=== PATIENT | male | born 1985 | race Caucasian/White ===

== ENCOUNTER 2019-07-14 18:16 | Emergency (ER) | payer OTHER, SELFPAY ==
--- NOTE | ~2019-07-14 | CT_ITS ---
EXAMINATION: CT abdomen pelvis w con EXAM DATE: 07/14/2019 19:53 INDICATION: Right lower quadrant pain. TECHNIQUE: Spiral CT of the abdomen and pelvis was performed following intravenous injection of 100 m L Omnipaque 350. Axial, coronal and sagittal images were reviewed. The dose-length product (DLP) fo r this examination was 223.76 mGy-cm. The exposure was tailored according to patient size (auto mA e xposure control), and iterative reconstruction (ASIR) was used as additional dose reduction technique . Comparison is made to prior examination from 06/08/2012. FINDINGS: The liver, spleen, adrenal glands and pancreas are unremarkable. Gallbladder is unremarkab le. No biliary obstruction. Portal and splenic veins are patent. Kidneys enhance symmetrically. T here is no hydronephrosis. The prostate is unremarkable. The bladder is unremarkable. There is no retroperitoneal or pelvic lymphadenopathy. There is mild to moderate sigmoid colonic diverticulosis, equivocal mild inflammation adjacent to thi s, possible acute uncomplicated diverticulitis. Probable identification of a normal appendix. No albertina cecal inflammation. The stomach and small bowel are unremarkable. There is expected amount of colo lian stool. No free intraperitoneal gas. The heart is normal in size. There are no pericardial or pleural effusions. The lung bases are unremarkable. The bones are unremarkable. IMPRESSION: 1. Possible acute uncomplicated sigmoid colonic diverticulitis. 2. No other suspicious findings. Reviewed, dictated and finalized at location A.
[2019-07-14 18:42] VITALS: BP 145/70; PULSE 68; RESP 18; TEMP 36.9; O2SAT 100
[2019-07-14 19:09] LABS: Basophils Percent Auto 0.5 % (0.2-1.2); Eosinophils Absolute Auto 0.1 K/mm3 (0-0.3); Eosinophils Percent Auto 1.6 % (0-4.4); Hematocrit 45.5 % (42.0-52.0); Immature Granulocyte Absolute 0.02 K/mm3 (0.00-0.031); Immature Granulocyte Percent A 0.2 % (0-0.5); Lymphocytes Absolute Auto 2.28 K/mm3 (0.9-3.2); Lymphocytes Percent Auto 28.3 % (18.3-44.2); Mean Corpuscular Hemoglobin 29.4 pg (26-34); Mean Platelet Volume 9.7 fl (7.4-10.4); Monocytes Absolute Auto 0.7 K/mm3 (0.1-0.6); Monocytes Percent Auto 8.1 % (2.6-8.5); Neutrophils Percent Auto 61.3 % (45.5-73.1); Platelet Count Result 245 k/mm3 (150-375); Red Blood Count 5.11 M/mm3 (4.6-6.20); Red Cell Distribution Width 12.4 % (11.5-14.5); White Blood Count 8.1 K/mm3 (4.5-10.0)
--- NOTE | 2019-07-14 19:10 | ED.GENADULT ---
HPI - General Adult General Chief complaint: Abdominal Pain Stated complaint: RLQ pain Time Seen by Provider: 07/14/19 18:46 Source: patient History of Present Illness HPI narrative: Patient is a 33 y/o male complaining of right lower abdominal pain starting approximately 2 hours ago. He describes the pain as an ache and rates it as 4/10. He states the the pain radiates to right back sometimes. The pain has decreased spontaneously. He has not take any meds for this pain. Related Data Allergies Allergy/AdvReac Type Severity Reaction Status Date / Time sulfamethoxazole Allergy Intermediate Confusion Verified 07/14/19 18:47 trimethoprim Allergy Intermediate Confusion Verified 07/14/19 18:47 Review of Systems Constitutional: Constitutional: Denies chills, Denies fever(s), Denies headache(s) and Denies weakness Eyes: Eyes: Denies blurry vision ENT: Denies headache(s) and Denies neck pain Cardiovascular: Cardiovascular: Denies chest pain and Denies dyspnea Respiratory: Respiratory: Denies cough and Denies dyspnea Gastrointestinal: Gastrointestinal: Reports abdominal pain, Denies diarrhea, Denies nausea and Denies vomiting Genitourinary: Genitourinary: Denies hematuria and Denies dysuria Musculoskeletal: Musculoskeletal: Denies back pain and Denies neck pain Neurologic: Denies headache(s) and Denies weakness [facility] Social History Social History Gender identity (if verbalized by the patient): Female Exam Const: General: no acute distress and well developed Orientation/consciousness: oriented to person, oriented to place, oriented to time and patient oriented x3 HENMT: Head: normocephalic Ears: external ears normal General nose exam: Normal external nose present Eyes: General: appearance normal, both eyes and all related structures Conjunctivae: conjunctivae normal Neck: Neck: normal visual inspection and full ROM Chest: Chest palpation & inspection: normal inspection of the chest and no tenderness Resp: Effort & Inspection: normal respiratory effort Auscultation: clear to auscultation bilaterally Cardio: Rate: regular rate Rhythm: regular rhythm GI: GI Palp: No abdominal tenderness and Yes Soft to palpation Skin: General skin exam: normal color and turgor normal Neuro: General: oriented to person, oriented to place, oriented to time and patient oriented x3 Cognition (Neuro): normal cognition Extrem: General: normal to inspection, full ROM and no pedal edema Psych: Appearance: grossly normal Mental Status: mental status grossly normal Affect: normal affect Course Reevaluation(s) Reevaluation #1: Rechecked. Patient feels better. Instructed patient to return if pain worsens. Date: 07/14/19 Vital Signs Vital signs: Vital Signs Temperature 36.9 C 07/14/19 18:42 Pulse Rate 68 07/14/19 18:42 Respiratory Rate 18 07/14/19 18:42 Blood Pressure 145/70 H 07/14/19 18:42 Pulse Oximetry 100 07/14/19 18:42 Temperature 36.9 C 07/14/19 18:42 Pulse Rate 70 07/14/19 21:43 Respiratory Rate 18 07/14/19 21:43 Blood Pressure 132/70 07/14/19 21:43 Pulse Oximetry 98 07/14/19 21:43 Medical Decision Making Vital Signs Vital Signs: Vital Signs Temperature 36.9 C 07/14/19 18:42 Pulse Rate 68 07/14/19 18:42 Respiratory Rate 18 07/14/19 18:42 Blood Pressure 145/70 H 07/14/19 18:42 Pulse Oximetry 100 07/14/19 18:42 Temperature 36.9 C 07/14/19 18:42 Pulse Rate 70 07/14/19 21:43 Respiratory Rate 18 07/14/19 21:43 Blood Pressure 132/70 07/14/19 21:43 Pulse Oximetry 98 07/14/19 21:43 Lab Data Result diagrams: 07/14/19 19:01 07/14/19 19:01 Labs: Lab Results 07/14/19 07/14/19 07/14/19 Range/Units 19:01 19:01 19:01 WBC 8.1 (4.5-10.0) K/mm3 RBC 5.11 (4.6-6.20) M/mm3 Hgb 15.0 (14.0-18.0) g/dL Hct 45.5 (42.0-52.0) % MCV 89.0 (80-100) f
[2019-07-14 19:12] LABS: Add Urine Microscopic? NO; Appearance Urine Clear (Clear); Bilirubin Urine Negative (Negative); Blood Urine Negative (Negative); Color Urine Straw (Yellow); Glucose Urine UA Negative (Negative); Ketones Urine Negative (Negative); Leukocyte Esterase Ur Negative LEU/UL (Negative); Nitrate Urine Negative (Negative); Protein Urine Negative (Negative); Specific Grav Ur 1.016 (1.001-1.035); Urobilinogen Urine Negative mg/dL (<2.0)
[2019-07-14] MEDS: SODIUM CHLORIDE 0.9% IV 1,000 ML 999 ML IV CONT (19:14)
[2019-07-14] MEDS: KETOROLAC 30 MG/ML VIAL (*BKC) IV PUSH (19:14)
[2019-07-14 19:22] LABS: Alanine Aminotransferase 21 U/L (4-50); Albumin Level 4.7 g/dL (3.5-5.1); Alkaline Phosphatase 73 U/L (38-126); Aspartate Amino Transferase 27 U/L (17-59); Bilirubin,Total 0.4 mg/dL (0.2-1.3); Blood Urea Nitrogen 22 mg/dL (9-20); Calcium 9.4 mg/dL (8.4-10.2); Carbon Dioxide 27 mmol/L (22-30); Chloride 103 mmol/L (98-107); Estimated CRCL calculation 92 ml/min; Estimated Glomerular Filt Rate > 60; Glucose 100 mg/dL (75-110); Lipase 117 U/L (23-300); Potassium 4.2 mmol/L (3.4-5.0); Sodium 136 mmol/L (137-145)
[2019-07-14 20:06] VITALS: BP 118/74; PULSE 66; RESP 20; O2SAT 100
[2019-07-14 21:12] VITALS: BP 120/80; PULSE 79; RESP 18; O2SAT 100
[2019-07-14 21:43] VITALS: BP 132/70; PULSE 70; RESP 18; O2SAT 98
--- NOTE | 2019-07-15 16:39 | PCCCNOTE ---
Notified [facility] at 07/15/19 at 0930 (phone# [phone]) Spoke with Sarah Boo Notification # [id number]
== END 2019-07-14 21:44 | disposition home or self-care (01) ==
PROVIDERS: Emergency Provider Emergency Medicine
DX: K57.92 Diverticulitis of intestine, part unspecified, without perforation or abscess without bleeding (principal)
CPT/HCPCS: 36415; 74177; 80053; 81003; 83690; 85025; 96361; 96374; 99284; J1885; J7030; Q9967

== ENCOUNTER 2021-10-13 08:18 | Emergency (ER) | payer OTHER, SELFPAY ==
[2021-10-13 08:42] VITALS: BP 119/83; PULSE 65; RESP 15; TEMP 36.7; O2SAT 100
--- NOTE | 2021-10-13 09:17 | ED.GENADULT ---
HPI - General Adult General Chief complaint: Back Pain/Injury Stated complaint: lower back injury Time Seen by Provider: 10/13/21 08:19 History of Present Illness HPI narrative: 36-year-old male presenting to the emergency department for evaluation of lower back pain. Patient states that yesterday he bent over to lift up a piece of concrete and while lifting it he had a twinge in his lower back. Patient states since then he has had lower back pain worsened with movement. Patient denies any loss of bowel or bladder control. Patient denies any numbness or wiping. Patient denies any pain that radiates down his leg. Patient denies any prior history of back surgery. Related Data Allergies Allergy/AdvReac Type Severity Reaction Status Date / Time sulfamethoxazole Allergy Intermediate Confusion Verified 10/13/21 08:42 trimethoprim Allergy Intermediate Confusion Verified 10/13/21 08:42 Review of Systems Review of Systems: CONSTITUTIONAL: Denies fever, chills, or sweats. EYES: Denies visual changes, redness, or discharge. ENT: Denies rhinorrhea, congestion, sore throat, or otalgia. CARDIOVASCULAR: Denies chest pain, palpitations, or edema. RESPIRATORY: Denies cough or dyspnea. GASTROINTESTINAL: Denies abdominal pain, nausea, vomiting, or diarrhea. GENITOURINARY: Denies dysuria or hematuria. SKIN: Denies rash or itching. MUSCULOSKELETAL: Low back pain, see HPI NEUROLOGIC: Denies headache, numbness, or weakness. PMFSH Social History Social History Gender identity (if verbalized by the patient): Female Exam Narrative: APPEARANCE: Well appearing, no pain, no distress, well-nourished. HEAD: normocephalic, atraumatic. EYES: PERRLA/EOMI, conjunctivae clear. NOSE: Normal no drainage NECK: Supple. No adenopathy, no masses. RESPIRATORY: Airway patent, respirations nonlabored. Clear to auscultation bilaterally, no rales, rhonchi, wheezing. CARDIOVASCULAR: Regular rate and rhythm without murmurs rubs or gallops. ABDOMINAL: Soft, nontender, nondistended, normal bowel sounds MUSCULOSKELETAL: Moves all extremities. Strength/ROM intact, No edema, No calf tenderness. Paraspinal tenderness to lower back. No midline tenderness to palpation. No step-offs or deformities. NEURO: Alert. Cranial nerves II through XII intact. Grossly intact. SKIN: Warm, dry. Normal Color Course Vital Signs Vital signs: Vital Signs Temperature 98.0 F 10/13/21 08:42 Pulse Rate 65 10/13/21 08:42 Respiratory Rate 15 10/13/21 08:42 Blood Pressure 119/83 10/13/21 08:42 Pulse Oximetry 100 10/13/21 08:42 Oxygen Delivery Room Air 10/13/21 08:42 Temperature 98.0 F 10/13/21 08:42 Pulse Rate 86 10/13/21 09:35 Respiratory Rate 15 10/13/21 09:35 Blood Pressure 119/83 10/13/21 08:42 Pulse Oximetry 99 10/13/21 09:35 Oxygen Delivery Room Air 10/13/21 08:42 Medical Decision Making Vital Signs Vital Signs: Vital Signs Temperature 98.0 F 10/13/21 08:42 Pulse Rate 65 10/13/21 08:42 Respiratory Rate 15 10/13/21 08:42 Blood Pressure 119/83 10/13/21 08:42 Pulse Oximetry 100 10/13/21 08:42 Oxygen Delivery Room Air 10/13/21 08:42 Temperature 98.0 F 10/13/21 08:42 Pulse Rate 86 10/13/21 09:35 Respiratory Rate 15 10/13/21 09:35 Blood Pressure 119/83 10/13/21 08:42 Pulse Oximetry 99 10/13/21 09:35 Oxygen Delivery Room Air 10/13/21 08:42 Discharge Plan Discharge Clinical Impression: Strain of lumbar region Patient Disposition: Home, Self-Care Condition: Stable Instructions: Antibiotic Form, Back Pain (ED), Lower Back Exercises (ED) Additional Instructions: Ibuprofen scheduled for the next 2 to 3 days. Flexeril as needed for muscle spasm. Dracut as needed for any additional pain. If you have any worsening symptoms then please call or return to the emergency department. Please have close follow-up with your primary care
[2021-10-13] MEDS: KETOROLAC 30 MG/ML VIAL (*BKC) IM (09:31)
[2021-10-13] MEDS: CYCLOBENZAPRINE HCL 10 MG TABLET PO (09:31)
[2021-10-13 09:35] VITALS: PULSE 86; RESP 15; O2SAT 99
== END 2021-10-13 09:36 | disposition home or self-care (01) ==
PROVIDERS: Emergency Provider Emergency Medicine
DX: S39.012A Strain of muscle, fascia and tendon of lower back, initial encounter (principal); X50.0XXA Overexertion from strenuous movement or load, initial encounter
CPT/HCPCS: 96372; 99283; A9270; J1885